=== PATIENT | female | born 1970 | race American Indian/Alaskan Native ===

== ENCOUNTER 2018-07-14 14:13 | Emergency (ER) | payer OTHER ==
--- NOTE | 2018-07-14 14:41 | Emergency Department Report ---
Blank Doc - Documentation Documentation: This is a 48-year-old female that presents with ventricle hernia. Stated is u nable to push it back and PCP stated to come to the ED. This initial assessment/diagnostic orders/clinical plan/treatment(s) is/are subject to change based on patient's health status, clinical progression and re- assessment by fellow clinical providers in the ED. Further treatment and workup at subsequent clinical providers discretion. Patient/guardians urged not to elope from the ED as their condition may be serious if not clinically assessed and managed. Initial orders include: 1- Patient sent to [facility] for further evaluation and treatment 2- labs
[2018-07-14 15:04] LABS: Basophils # (Auto) 0.1 K/mm3 (0.0-0.1); Basophils % (Auto) 0.8 % (0.0-1.8); Eosinophils # (Auto) 0.2 K/mm3 (0.0-0.4); Eosinophils % (Auto) 2.3 % (0.0-4.3); Hematocrit 38.1 % (30.3-42.9); Hemoglobin 12.1 gm/dl (10.1-14.3); Lymphocytes # (Auto) 2.7 K/mm3 (1.2-5.4); Lymphocytes % (Auto) 34.9 % (13.4-35.0); Mean Corpuscular HGB Conc 32 % (30-34); Mean Corpuscular Volume 76 fl (79-97); Monocytes # (Auto) 0.5 K/mm3 (0.0-0.8); Platelet Count 215 K/mm3 (140-440); Red Blood Count 5.03 M/mm3 (3.65-5.03); Red Cell Distribution Width 15.5 % (13.2-15.2)
[2018-07-14 15:24] LABS: BUN/Creatinine Ratio 16; Blood Urea Nitrogen 11 mg/dL (7-17); Calcium 9.1 mg/dL (8.4-10.2); Hemolysis Index 17
[2018-07-14] MEDS ORDERED: NACL 0.9% 1000 ML 1,000 ML IV ONE (17:17)
[2018-07-14] MEDS ORDERED: TORADOL IV ONE (17:17)
[2018-07-14] MEDS ORDERED: ZOFRAN IV ONE (17:17)
--- NOTE | 2018-07-14 18:09 | Emergency Department Report ---
ED Abdominal Pain HPI - General Chief Complaint: Abdominal Pain Stated Complaint: HERNIA Time Seen by Provider: 07/14/18 14:40 Source: patient, family Mode of arrival: Ambulatory Limitations: No Limitations - History of Present Illness Initial Comments: This is a 48-year-old female that presents with ventricle hernia.hx of IBS, Stated is unable to push it back and PCP stated to come to the ED. there is no n/v no blood stools MD Complaint: abdominal pain Onset/Timin -: week(s), unknown (chronic problem) Location: periumbilical Radiation: LLQ Migration to: no migration, LLQ Severity: moderate Severity scale (0 -10): 10 Quality: sharp Consistency: constant Improves With: nothing Worsens With: nothing Associated Symptoms: nausea. denies: vomiting, diarrhea, constipation, dysuria Treatments Prior to Arrival: NSAIDs - Related Data LMP (females 10-50): other (as/p RAY) Previous Rx's Medication Instructions Recorded Last Taken Type Cyclobenzaprine [Flexeril 10mg] 10 mg PO TID PRN #20 tablet 08/29/14 Unknown Rx oxyCODONE /ACETAMINOPHEN [Percocet 2 tab PO Q6HR PRN #20 tablet 08/29/14 Unknown Rx 5/325] Dicyclomine [Bentyl] 10 mg PO QID 3 Days capsule 04/02/18 Unknown Rx Diphenoxylate/Atropine [Lomotil] 1 tab PO Q4H PRN #10 tablet 04/02/18 Unknown Rx Ondansetron [Zofran Odt] 4 mg PO Q8HR PRN #10 tab.rapdis 04/02/18 Unknown Rx traMADol [Ultram] 50 mg PO Q6HR PRN #10 tablet 04/02/18 Unknown Rx Dicyclomine [Bentyl] 10 mg PO QID PRN #40 capsule 07/14/18 Unknown Rx traMADol [Ultram] 50 mg PO Q6HR PRN #12 tablet 07/14/18 Unknown Rx Allergies Allergy/AdvReac Type Severity Reaction Status Date / Time No Known Allergies Allergy Unverified 08/29/14 08:56 ED Review of Systems ROS: Stated complaint: HERNIA Other details as noted in HPI Constitutional: denies: chills, fever Eyes: denies: eye pain, eye discharge, vision change ENT: denies: ear pain, throat pain Respiratory: denies: cough, shortness of breath, wheezing Cardiovascular: denies: chest pain, palpitations Endocrine: no symptoms reported Gastrointestinal: abdominal pain, other (ventral hernia ). denies: nausea, diarrhea Genitourinary: denies: urgency, dysuria, discharge Musculoskeletal: denies: back pain, joint swelling, arthralgia Skin: denies: rash, lesions Neurological: denies: headache, weakness, paresthesias Psychiatric: denies: anxiety, depression Hematological/Lymphatic: denies: easy bleeding, easy bruising ED Past Medical Hx - Past Medical History Hx Hypertension: Yes (diet controlled) Additional medical history: Ventrical Hernia - Surgical History Hx Cholecystectomy: Yes Additional Surgical History: HYSTO - Social History Smoking Status: Never Smoker Substance Use Type: None - Medications Home Medications: Home Medications Medication Instructions Recorded Confirmed Last Taken Type Cyclobenzaprine [Flexeril 10mg] 10 mg PO TID PRN #20 tablet 08/29/14 Unknown Rx oxyCODONE /ACETAMINOPHEN [Percocet 2 tab PO Q6HR PRN #20 tablet 08/29/14 Unknown Rx 5/325] Dicyclomine [Bentyl] 10 mg PO QID 3 Days capsule 04/02/18 Unknown Rx Diphenoxylate/Atropine [Lomotil] 1 tab PO Q4H PRN #10 tablet 04/02/18 Unknown Rx Ondansetron [Zofran Odt] 4 mg PO Q8HR PRN #10 tab.rapdis 04/02/18 Unknown Rx traMADol [Ultram] 50 mg PO Q6HR PRN #10 tablet 04/02/18 Unknown Rx Dicyclomine [Bentyl] 10 mg PO QID PRN #40 capsule 07/14/18 Unknown Rx traMADol [Ultram] 50 mg PO Q6HR PRN #12 tablet 07/14/18 Unknown Rx ED Physical Exam - General Limitations: No Limitations General appearance: alert, in no apparent distress - Head Head exam: Present: atraumatic, normocephalic - Eye Eye exam: Present: normal appearance, PERRL, EOMI Pupils: Present: normal accommodation - ENT ENT exam: Present: normal exam, mucous membranes moist - Neck Neck exam: Present: normal inspection, full ROM - Respiratory Respiratory exam: Present: normal lung sounds bilaterally. Absent: respiratory distress - Cardiovascular Cardiovascular Exam: Present: regular rate, normal rhythm, normal heart sounds. Absent: systolic murmur, diastolic murmur, rubs, gallop - GI/Abdominal GI/Abdominal exam: Present: soft, tenderness (periumbilical tenderness ), normal bowel sounds, hernia (periumbilical no thrills no bruit ), other (abd obese ). Absent: guarding, rebound, rigid, bruit - Rectal Rectal exam: Present: deferred - Extremities Exam Extremities exam: Present: normal inspection - Back Exam Back exam: Present: normal inspection, full ROM. Absent: tenderness, CVA tenderness (R), CVA tenderness (L), muscle spasm, paraspinal tenderness, rash noted - Neurological Exam Neurological exam: Present: alert, oriented X3, CN II-XII intact, normal gait, reflexes normal - Psychiatric Psychiatric exam: Present: normal affect, normal mood - Skin Skin exam: Present: warm, dry, intact, normal color. Absent: rash ED Course Vital Signs 07/14/18 14:41 Temperature 97 F L Pulse Rate 93 H Respiratory 18 Rate Blood Pressure 148/89 O2 Sat by Pulse 100 Oximetry ED Medical Decision Making - Lab Data Result diagrams: 07/14/18 14:44 07/14/18 14:44 - Radiology Data Radiology results: report reviewed, image reviewed cc: DOLLY MONCADA NP PROCEDURE: CT abdomen and pelvis with contrast. TECHNIQUE: Computerized axial tomography of the abdomen and pelvis was performed after the IV injection of iodinated nonionic contrast. CT DOSE LENGTH PRODUCT: 3315.02 mGycm HISTORY: abd pain hx IBS with obstruction COMPARISONS: None. FINDINGS: The lung bases are clear. There are no pleural effusions. The heart size is normal. The liver, pancreas and spleen appear normal. Cholecystectomy clips are present. There is no biliary dilatation. The adrenal glands are not enlarged. Both kidneys appear normal in size and configuration. The abdominal aorta has a normal caliber. There is no retroperitoneal adenopathy. There is a large ventral wall hernia containing abdominal fat. This is located superior to the umbilicus. The unopacified gastrointestinal tract is unremarkable. A normal appendix is visible. The bladder appears normal. The uterus has been removed. The regional skeleton appears intact. 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 IMPRESSION: Previous cholecystectomy and hysterectomy. Large ventral wall hernia containing abdominal fat. No evidence of acute disease in the abdomen or pelvis. This document is electronically signed by Mekhi Denise MD., July 14 2018 08:25:31 PM ET Transcribed By: [facility] Dictated By: MEKHI DENISE MD Electronically Authenticated By: MEKHI DENISE MD Signed Date/Time: 07/14/182026 DD/ 19 TD/TT: 07/14/18 192 - Medical Decision Making CT can ventral hernia incarceration this a chronic problem for this patient with General surgery pain medicine. Patient will follow her general surgeon in 2 days patient verbalized agreement and understanding of same patient was hydrated tolerating by mouth intake there is no fever or chills normal bowel movements. Critical care attestation.: If time is entered above; I have spent that time in minutes in the direct care of this critically ill patient, excluding procedure time. ED Disposition Clinical Impression: Hernia, abdominal Qualifiers: Hernia type: unspecified Obstruction and gangrene presence: without obstruction or gangrene Recurrence: recurrent Qualified Code(s): K45.8 - Other specified abdominal hernia without obstruction or gangrene Abdominal pain Qualifiers: Abdominal location: generalized Qualified Code(s): R10.84 - Generalized abdominal pain Disposition: DC-01 TO HOME OR SELFCARE Is pt being admited?: No Does the pt Need Aspirin: No Condition: Stable Instructions: Abdominal Pain (ED) Prescriptions: Dicyclomine [Bentyl] 10 mg PO QID PRN #40 capsule PRN Reason: abd spasm traMADol [Ultram] 50 mg PO Q6HR PRN #12 tablet PRN Reason: Pain Referrals: SURESH ODEN MD [Staff Physician] - 3-5 Days Forms: Work/School Release Form(ED) Time of Disposition: 20:54
--- NOTE | 2018-07-14 20:27 | Cat Scan Report ---
PROCEDURE: CT abdomen and pelvis with contrast. TECHNIQUE: Computerized axial tomography of the abdomen and pelvis was performed after the IV inject ion of iodinated nonionic contrast. CT DOSE LENGTH PRODUCT: 3315.02 mGycm HISTORY: abd pain hx IBS with obstruction COMPARISONS: None. FINDINGS: The lung bases are clear. There are no pleural effusions. The heart size is normal. The liver, pancre as and spleen appear normal. Cholecystectomy clips are present. There is no biliary dilatation. The a drenal glands are not enlarged. Both kidneys appear normal in size and configuration. The abdominal a sienna has a normal caliber. There is no retroperitoneal adenopathy. There is a large ventral wall lea ia containing abdominal fat. This is located superior to the umbilicus. The unopacified gastrointesti nal tract is unremarkable. A normal appendix is visible. The bladder appears normal. The uterus has b een removed. The regional skeleton appears intact. 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 IMPRESSION: Previous cholecystectomy and hysterectomy. Large ventral wall hernia containing abdomina l fat. No evidence of acute disease in the abdomen or pelvis. This document is electronically signed by Mekhi Gallo MD., July 14 2018 08:25:31 PM ET
[2018-07-14 21:00] VITALS: BP 125/72
[2018-07-14 21:00] LABS: Bilirubin,Urine NEG (Negative); Blood,Urine NEG (Negative); Color,Urine Yellow (Yellow); Mucus,Urine FEW /HPF; Protein,Urine <15 mg/dL mg/dL (Negative); Urobilinogen,Urine < 2.0 mg/dL (<2.0)
== END 2018-07-14 21:00 | disposition home or self-care (01) ==
LOC: ED 14:13
DX: K46.9 Unspecified abdominal hernia without obstruction or gangrene (principal); I10 Essential (primary) hypertension; Z90.49 Acquired absence of other specified parts of digestive tract; Z90.710 Acquired absence of both cervix and uterus
CPT/HCPCS: 36415; 74177; 80048; 81001; 85025; 96374; 96375; 99284; J1885; J2405; J7030; Q9967